=== PATIENT | female | born 1965 | race Caucasian/White ===

== ENCOUNTER 2019-02-06 07:11 | Emergency (ER) | payer BC ==
[2019-02-06] MEDS ORDERED: ONDANSETRON 4 MG/2 ML VIAL ONE ×2 (08:06→12:28)
[2019-02-06] MEDS ORDERED: HYDROMORPHONE HCL 1 MG/ML INJ ONE ×2 (08:06→09:06)
[2019-02-06] MEDS ORDERED: NA CHLORIDE 0.9% 1,000 ML ONE ×2 (08:06→08:51)
[2019-02-06 08:23] LABS: Absolute Lymphocytes (CBC) 0.8 K/uL (0.7-4.9); Absolute Monocytes 0.3 K/uL (0.1-1.3); Basophils % 0.3 % (0-1.3); Eosinophils % 0.1 % (0-4.4); Hematocrit 38.9 % (36.0-45.0); Lymphocytes % 15.4 % (15.3-44.8); MPV 9.4 fL (7.6-11.3); Monocytes % 5.7 % (3.3-12.3)
[2019-02-06 08:28] LABS: Protime INR 1.07
--- NOTE | 2019-02-06 08:49 | RAD REPORT ---
EXAM DESCRIPTION: RAD - Chest Single View - 02/06/2019 8:37 am CLINICAL HISTORY: ABDOMINAL DISTENTION Chest pain. COMPARISON: No comparisons FINDINGS: Portable technique limits examination quality. The lungs are grossly clear. The heart is normal in size. No displaced fractures. IMPRESSION: No acute intrathoracic process suspected.
[2019-02-06] MEDS ORDERED: PANTOPRAZOLE 40 MG INJ ONE (08:51)
[2019-02-06 09:00] LABS: ALT/SGPT 39 U/L (12-78); AST/SGOT 33 U/L (15-37); Albumin 3.6 g/dL (3.4-5.0); Alkaline Phosphatase 148 U/L (45-117); BUN Blood Urea Nitrogen 11 mg/dL (7-18); Bicarbonate 23 mmol/L (21-32); Bilirubin Direct 0.2 mg/dL (0-0.2); Bilirubin Total 0.5 mg/dL (0.2-1.0); Glucose Level 134 mg/dL (74-106); Lipase 131 U/L (73-393); Magnesium 1.7 mg/dL (1.8-2.4); NT PRO-BNP 326 pg/mL (<125); Potassium 3.3 mmol/L (3.5-5.1); Protein, Total 7.1 g/dL (6.4-8.2); Sodium Level 136 mmol/L (136-145); Troponin (Emerg Dept Use Only) < 0.02 ng/mL (0.0-0.045)
[2019-02-06] MEDS ORDERED: NS KCL 20MEQ 1,000 ML IV ONE (09:53)
[2019-02-06] MEDS ORDERED: MAGNESIUM SULFATE 1 gm IVPB 0 GM/0 ML BAG IV ONE (09:53)
[2019-02-06] MEDS ORDERED: Magnesium Sulfate 2gm IVPB 2 G/50 ML BAG IV ONE (10:09)
[2019-02-06] MEDS ORDERED: HYDROMORPHONE HCL 0.5 MG/0.5 ML INJ ONE (10:18)
--- NOTE | 2019-02-06 11:13 | EDPHYS ---
Physician Documentation [facility] Name: Yunior Euceda Age: 53 yrs Sex: Female : 1965 Arrival Date: 02/06/2019 Time: 07:14 Bed 18 Private MD: out of town, doctor ED Physician Osvaldo Beck HPI: 02/06 07:52 This 53 yrs old Female presents to ER via Ambulatory with complaints of alvin Abdominal Cramping, Back Pain. 07:52 The patient presents with abdominal pain. Onset: The symptoms/episode began/occurred 2 alvin day(s) ago. The patient presents to the emergency department with nausea, vomiting, abdominal pain. Onset: The symptoms/episode began/occurred 2 day(s) ago. Possible causes: unknown. The symptoms are aggravated by movement, pressure, food , The symptoms are alleviated by nothing. remaining still. Associated signs and symptoms: The patient has no apparent associated signs or symptoms. Historical: - Allergies: 07:17 No Known Allergies; sv - PMHx: 07:17 None; sv - PSHx: 07:17 Cholecystectomy; gastric sleeve; Appendectomy; sv - Immunization history:: Adult Immunizations unknown. - Social history:: Smoking status: unknown. - Family history:: not pertinent. - Ebola Screening: : No symptoms or risks identified at this time. ROS: 07:52 Constitutional: Negative for fever, chills, and weight loss, Eyes: Negative for injury, alvin pain, redness, and discharge, ENT: Negative for injury, pain, and discharge, Neck: Negative for injury, pain, and swelling, Cardiovascular: Negative for chest pain, palpitations, and edema, Respiratory: Negative for shortness of breath, cough, wheezing, and pleuritic chest pain, Back: Negative for injury and pain, : Negative for injury, bleeding, discharge, and swelling, MS/Extremity: Negative for injury and deformity, Skin: Negative for injury, rash, and discoloration, Neuro: Negative for headache, weakness, numbness, tingling, and seizure, Psych: Negative for depression, anxiety, suicide ideation, homicidal ideation, and hallucinations, Allergy/Immunology: Negative for hives, rash, and allergies, Endocrine: Negative for neck swelling, polydipsia, polyuria, polyphagia, and marked weight changes, Hematologic/Lymphatic: Negative for swollen nodes, abnormal bleeding, and unusual bruising. 07:52 Abdomen/GI: Positive for abdominal pain, of the epigastric area, right upper quadrant and left upper quadrant. Exam: 07:52 Constitutional: This is a well developed, well nourished patient who is awake, alert, alvin and in no acute distress. Head/Face: Normocephalic, atraumatic. Eyes: Pupils equal round and reactive to light, extra-ocular motions intact. Lids and lashes normal. Conjunctiva and sclera are non-icteric and not injected. Cornea within normal limits. Periorbital areas with no swelling, redness, or edema. ENT: Nares patent. No nasal discharge, no septal abnormalities noted. Tympanic membranes are normal and external auditory canals are clear. Oropharynx with no redness, swelling, or masses, exudates, or evidence of obstruction, uvula midline. Mucous membranes moist. Neck: Trachea midline, no thyromegaly or masses palpated, and no cervical lymphadenopathy. Supple, full range of motion without nuchal rigidity, or vertebral point tenderness. No Meningismus. Chest/axilla: Normal chest wall appearance and motion. Nontender with no deformity. No lesions are appreciated. Cardiovascular: Regular rate and rhythm with a normal S1 and S2. No gallops, murmurs, or rubs. Normal PMI, no JVD. No pulse deficits. Respiratory: Lungs have equal breath sounds bilaterally, clear to auscultation and percussion. No rales, rhonchi or wheezes noted. No increased work of breathing, no retractions or nasal flaring. Back: No spinal tenderness. No costovertebral tenderness. Full range of motion. Skin: Warm, dry with normal turgor. Normal color with no rashes, no lesions, and no evidence of cellulitis. MS/ Extremity: Pulses equal, no cyanosis. Neurovascular intact. Full, normal range of motion. Neuro: Awake and alert, GCS 15, oriented to person, place, time, and situation. Cranial nerves II-XII grossly intact. Motor strength 5/5 in all extremities. Sensory grossly intact. Cerebellar exam normal. Normal gait. Psych: Awake, alert, with orientation to person, place and time. Behavior, mood, and affect are within normal limits. 07:52 Abdomen/GI: Inspection: abdomen appears normal, Bowel sounds: active, Palpation: moderate abdominal tenderness, in the epigastric area, right upper quadrant and left upper quadrant, Liver: no appreciated palpable abnormalities, Hernia: not appreciated. Vital Signs: 07:17 BP 136 / 101; Pulse 56; Resp 24; Temp 98.1; Pulse Ox 100% ; Weight 55.79 kg; Height 5 sv ft. 2 in. (157.48 cm); Pain 8/10; 08:15 BP 141 / 72; Pulse 81; Resp 23 S; Pulse Ox 100% on R/A; jl7 11:03 BP 170 / 77; Pulse 75; Resp 19; Pulse Ox 100% ; jl7 13:30 BP 160 / 75; Pulse 61; Resp 18 S; Pulse Ox 100% on R/A; jl7 07:17 Body Mass Index 22.50 (55.79 kg, 157.48 cm) sv MDM: 07:23 Patient medically screened. [facility] 07:55 Data reviewed: vital signs, nurses notes, lab test result(s), EKG, radiologic studies, [facility] CT scan, plain films. 02/06 07:49 Order name: Basic Metabolic Panel; Complete Time: 09:14 [facility] 02/06 07:49 Order name: CBC with Diff; Complete Time: 08:54 [facility] 02/06 07:49 Order name: LFT's; Complete Time: 09:14 [facility] 02/06 07:49 Order name: Magnesium; Complete Time: 09:14 [facility] 02/06 07:49 Order name: NT PRO-BNP; Complete Time: 09:14 [facility] 02/06 07:49 Order name: PT-INR; Complete Time: 08:54 [facility] 02/06 07:49 Order name: Troponin (emerg Dept Use Only); Complete Time: 09:14 [facility] 02/06 07:49 Order name: XRAY Chest (1 view); Complete Time: 08:54 [facility] 02/06 07:49 Order name: Lipase; Complete Time: 09:14 [facility] 02/06 07:49 Order name: Procalcitonin; Complete Time: 08:54 [facility] 02/06 07:56 Order name: Lactate; Complete Time: 09:14 [facility] 02/06 07:49 Order name: EKG; Complete Time: 07:50 [facility] 02/06 07:49 Order name: Cardiac monitoring; Complete Time: 08:18 [facility] 02/06 07:49 Order name: EKG - Nurse/Tech; Complete Time: 09:03 [facility] 02/06 07:49 Order name: IV Saline Lock; Complete Time: 08:18 [facility] 02/06 07:49 Order name: Labs collected and sent; Complete Time: 08:18 [facility] 02/06 07:49 Order name: O2 Per Protocol; Complete Time: 08:18 [facility] 02/06 07:49 Order name: O2 Sat Monitoring; Complete Time: 08:18 [facility] Administered Medications: 08:10 Drug: NS 0.9% 1000 ml Route: IV; Rate: 1 bolus; Site: right antecubital; jl7 10:14 Follow up: IV Status: Completed infusion; IV Intake: 1000ml jl7 08:11 Drug: Zofran 4 mg Route: IVP; Site: right antecubital; jl7 08:45 Follow up: Response: No adverse reaction; Nausea is decreased jl7 08:13 Drug: Dilaudid 1 mg Route: IVP; Site: right antecubital; jl7 08:45 Follow up: Response: No adverse reaction; Pain is unchanged, physician notified jl7 08:58 Drug: NS 0.9% 1000 ml Route: IV; Rate: 125 ml/hr; Site: right antecubital; jl7 08:58 Drug: Dilaudid 1 mg Route: IVP; Site: right antecubital; jl7 09:45 Follow up: Response: No adverse reaction; Pain is unchanged, physician notified jl7 09:00 Drug: ProTONIX 40 mg Route: IVP; Site: right antecubital; jl7 10:13 Follow up: Response: No adverse reaction jl7 10:00 Drug: NS 0.9% with KCl 20 mEq/L 1000 ml Route: IV; Rate: 125 ml/hr; Site: right jl7 antecubital; 10:02 Drug: Magnesium Sulfate 2 grams Route: IVPB; Infused Over: 2 hrs; Site: right jl7 antecubital; 10:08 Drug: Dilaudid 0.5 mg Route: IVP; Site: right antecubital; jl7 12:29 Drug: Zofran 4 mg Route: IVP; Site: right antecubital; jl7 12:30 Drug: morphine 4 mg Route: IVP; Site: right antecubital; jl7 Disposition: 02/06/19 12:20 Transfer ordered to Other Acute Care Facility. Diagnosis are Abdominal tenderness - intractable, hx of gastric sleeve, gastric bypass, Vomiting, Hypomagnesemia, Hypokalemia. - Reason for transfer: Higher level of care. - Accepting physician is may lincoln, dr mo consulting. - Condition is Stable. - Problem is new. - Symptoms have improved. Signatures: Dispatcher [employer] EDTX Sera Luciano, Osvaldo Doe RN, MD MD cha Leal, Jahala, RN RN jl7 Corrections: (The following items were deleted from the chart) 08:01 07:50 Abdomen Pelvis W Con+CT.RAD.BRZ ordered. [facility] EDTX 11:12 11:12 Hospitalization Ordered by [facility] for Inpatient Admission. Preliminary [facility] diagnosis is Abdominal tenderness - intractable; Congenital hiatus hernia; Vomiting - hx of gastric sleeve, bypass. Bed requested for Telemetry/MedSurg (Inpatient). Status is Inpatient Admission. Condition is Stable. Problem is new. Symptoms have improved. UTI on Admission? No. [facility] 11:18 11:12 02/06/2019 11:12 Hospitalization Ordered by [facility] for Inpatient alvin Admission. Preliminary diagnosis is Abdominal tenderness - intractable; Congenital hiatus hernia; Vomiting - hx of gastric sleeve, bypass. Bed requested for Telemetry/MedSurg (observation). Status is Inpatient Admission. Condition is Stable. Problem is new. Symptoms have improved. UTI on Admission? No. alvin 12:18 11:18 02/06/2019 11:12 Hospitalization Ordered by [facility] for Inpatient alvin Admission. Preliminary diagnosis is Abdominal tenderness - intractable; Congenital hiatus hernia; Vomiting - hx of gastric sleeve, bypass; Hypokalemia; Hypomagnesemia. Bed requested for Telemetry/MedSurg (observation). Status is Inpatient Admission. Condition is Stable. Problem is new. Symptoms have improved. UTI on Admission? No. alvin 14:45 12:20 02/06/2019 12:20 Transfer ordered to Other Acute Care Facility. Diagnosis is jl7 Abdominal tenderness - intractable, hx of gastric sleeve, gastric bypass; Vomiting; Hypomagnesemia; Hypokalemia. Reason for transfer: Higher level of care. Accepting physician is may lincoln, dr mo consulting. Condition is Stable. Problem is new. Symptoms have improved. alvin
--- NOTE | 2019-02-06 11:13 | ER ---
Nurse's Notes [facility] Name: Yunior Euceda Age: 53 yrs Sex: Female : 1965 Arrival Date: 02/06/2019 Time: 07:14 Bed 18 Private MD: out of town, doctor Diagnosis: Abdominal tenderness-intractable, hx of gastric sleeve, gastric bypass;Vomiting;Hypomagnesemia;Hypokalemia Presentation: 02/06 07:14 Presenting complaint: Patient states: abd pain with radiation to the back x 1 day, c/o sv dry heaves. Transition of care: patient was not received from another setting of care. Onset of symptoms was February 05, 2019. Care prior to arrival: None. 07:14 Method Of Arrival: Ambulatory sv 07:14 Acuity: KUNAL 3 sv 07:30 Risk Assessment: Do you want to hurt yourself or someone else? Patient reports no jl7 desire to harm self or others. Initial Sepsis Screen: Does the patient meet any 2 criteria? No. Patient's initial sepsis screen is negative. Does the patient have a suspected source of infection? No. Patient's initial sepsis screen is negative. Historical: - Allergies: 07:17 No Known Allergies; sv - PMHx: 07:17 None; sv - PSHx: 07:17 Cholecystectomy; gastric sleeve; Appendectomy; sv - Immunization history:: Adult Immunizations unknown. - Social history:: Smoking status: unknown. - Family history:: not pertinent. - Ebola Screening: : No symptoms or risks identified at this time. Screenin:30 Abuse screen: Denies threats or abuse. Denies injuries from another. Nutritional jl7 screening: No deficits noted. Tuberculosis screening: No symptoms or risk factors identified. 08:45 Fall Risk IV access (20 points). jl7 Assessment: 07:30 General: Appears uncomfortable, Behavior is cooperative, anxious. Pain: Complains of jl7 pain in right upper quadrant and left upper quadrant Pain radiates to mid back area Pain currently is 8 out of 10 on a pain scale. at worst was 10 out of 10 on a pain scale. Quality of pain is described as aching, dull, sharp, Pain began 2-3 days ago. Is intermittent, Noted to be grimacing, guarding, moaning, Also complains of nausea. Neuro: Level of Consciousness is awake, alert, obeys commands, Oriented to person, place, time, situation. Cardiovascular: Patient's skin is warm and dry. Respiratory: Airway is patent Respiratory effort is even, unlabored, Respiratory pattern is regular, symmetrical. GI: Bowel sounds present X 4 quads. Abd is soft X 4 quads Abdomen is tender to palpation in right upper quadrant and left upper quadrant Reports nausea, Patient currently denies constipation, diarrhea, vomiting. : No signs and/or symptoms were reported regarding the genitourinary system. EENT: No signs and/or symptoms were reported regarding the EENT system. Derm: Skin is pink, warm \\T\\ dry. Musculoskeletal: No signs and/or symptoms reported regarding the musculoskeletal system. 07:30 Reassessment: Pt states "I had the gastric sleeve converted to a bypass in 2017 and jl7 every since then I have these flare-ups. I don't have a diagnosis yet, I'm supposed to see Dr. Johnson. I've went to [place] ER last night and they gave me a shot of Dilaudid, that helped for a while but this pain is unbearable. They did a CT with dye and blood work and it was all negative.". 08:45 Reassessment: Pt unable to provide urine sample at this time, will try again once fluid jl7 bolus is done. Pt reports continued severe abdominal pain, ERD notified, see MAR for orders. 09:45 Reassessment: No changes from previously documented assessment. Patient and/or family jl7 updated on plan of care and expected duration. Pain level reassessed. Patient is alert, oriented x 3, equal unlabored respirations, skin warm/dry/pink. 10:10 Reassessment: Pt c/o continued severe abdominal pain, requesting additional Dilaudid, jl7 ERD notified, see MAR for orders. Pt's lips appear dry and cracked, pt used personal chap stick at this time. 11:02 Reassessment: Dr. Beck at bedside discussing plan of care. jl7 11:32 Reassessment: Dr. Childers at bedside discussing plan of care. jl7 12:25 Reassessment: Pt reports the none of the medication has helped with the pain, pt states jl7 "I have to have something for the pain." ERD notified, see MAR for orders. 13:00 Reassessment: Pt sitting in bed with eyes closed, no apparent distress, VSS. Pt reports jl7 "The medication is not helping at all, I need something for the pain." Dr. Beck aware, no new orders received at this time. 14:00 Reassessment: No changes from previously documented assessment. Patient and/or family jl7 updated on plan of care and expected duration. Pain level reassessed. Patient is alert, oriented x 3, equal unlabored respirations, skin warm/dry/pink. Vital Signs: 07:17 BP 136 / 101; Pulse 56; Resp 24; Temp 98.1; Pulse Ox 100% ; Weight 55.79 kg; Height 5 sv ft. 2 in. (157.48 cm); Pain 8/10; 08:15 BP 141 / 72; Pulse 81; Resp 23 S; Pulse Ox 100% on R/A; jl7 11:03 BP 170 / 77; Pulse 75; Resp 19; Pulse Ox 100% ; jl7 13:30 BP 160 / 75; Pulse 61; Resp 18 S; Pulse Ox 100% on R/A; jl7 07:17 Body Mass Index 22.50 (55.79 kg, 157.48 cm) sv ED Course: 07:14 Patient arrived in ED. mr 07:14 out of town, doctor is Private Physician. mr 07:15 Triage completed. sv 07:18 Arm band placed on. sv 07:23 Osvaldo Beck MD is Attending Physician. alvin 07:30 Patient has correct armband on for positive identification. Placed in gown. Bed in low jl7 position. Call light in reach. Side rails up X 1. Pulse ox on. NIBP on. 07:35 Macario Hernandez, RN is Primary Nurse. jl7 08:37 EKG done, by cryptographic technician. reviewed by Osvaldo Beck MD. at1 08:38 XRAY Chest (1 view) In Process Unspecified. EDMS 11:07 Sabino Childers DO is Hospitalizing Provider. alvin Administered Medications: 08:10 Drug: NS 0.9% 1000 ml Route: IV; Rate: 1 bolus; Site: right antecubital; jl7 10:14 Follow up: IV Status: Completed infusion; IV Intake: 1000ml jl7 08:11 Drug: Zofran 4 mg Route: IVP; Site: right antecubital; jl7 08:45 Follow up: Response: No adverse reaction; Nausea is decreased jl7 08:13 Drug: Dilaudid 1 mg Route: IVP; Site: right antecubital; jl7 08:45 Follow up: Response: No adverse reaction; Pain is unchanged, physician notified jl7 08:58 Drug: NS 0.9% 1000 ml Route: IV; Rate: 125 ml/hr; Site: right antecubital; jl7 08:58 Drug: Dilaudid 1 mg Route: IVP; Site: right antecubital; jl7 09:45 Follow up: Response: No adverse reaction; Pain is unchanged, physician notified jl7 09:00 Drug: ProTONIX 40 mg Route: IVP; Site: right antecubital; jl7 10:13 Follow up: Response: No adverse reaction 7 10:00 Drug: NS 0.9% with KCl 20 mEq/L 1000 ml Route: IV; Rate: 125 ml/hr; Site: right 7 antecubital; 10:02 Drug: Magnesium Sulfate 2 grams Route: IVPB; Infused Over: 2 hrs; Site: right jl7 antecubital; 10:08 Drug: Dilaudid 0.5 mg Route: IVP; Site: right antecubital; jl7 12:29 Drug: Zofran 4 mg Route: IVP; Site: right antecubital; jl7 12:30 Drug: morphine 4 mg Route: IVP; Site: right antecubital; jl7 Intake: 10:14 IV: 1000ml; Total: 1000ml. jl7 Outcome: 11:12 Decision to Hospitalize by Provider. alvin 12:20 ER care complete, transfer ordered by . alvin 14:45 Patient left the ED. jl7 Signatures: Dispatcher [employer] Sera Mendez RN RN sv Anderson, Corey, MD MD cha Rivera, Ai mr Jacquelin Shaw, shape carver EKG Tat1 Macario Hernandez RN RN jl7 Corrections: (The following items were deleted from the chart) 07:24 07:17 BP 136 / 101; Pulse 88bpm; Resp 24bpm; Pulse Ox 100%; Temp 98.1F; 55.79 kg; sv Height 5 ft. 2 in.; BMI: 22.5; Pain 8/10; sv
[2019-02-06] MEDS ORDERED: MORPHINE 4 MG/ML SYR ONE (12:28)
--- NOTE | 2019-02-06 15:51 | EKG ---
Test Date: 2019-02-06 Test Time: 08:34:31 [employer]ems Integration Engineer: NICHOLE MEASUREMENT RESULTS: Intervals: Rate: 53 CT: 132 QRSD: 98 QT: 504 QTc: 472 [place]: P: 68 CT: 132 QRS: 67 T: 39 INTERPRETIVE STATEMENTS: Sinus bradycardia Otherwise normal ECG No previous ECG available for comparison Electronically Signed On 02-06-19 15:50:09 CDT by Conrado Cruz
== END 2019-02-06 14:45 ==
LOC: ER 07:11
DX: R10.819 Abdominal tenderness, unspecified site (principal); R11.10 Vomiting, unspecified; E83.42 Hypomagnesemia; E87.6 Hypokalemia; Z98.890 Other specified postprocedural states
CPT/HCPCS: 36415; 71045; 80048; 80076; 83605; 83690; 83735; 83880; 84145; 84484; 85025; 85610; 93005; 96361; 96374; 96375; 99284; C9113; J1170; J2405; J3475; J7030

== ENCOUNTER 2019-04-12 20:31 | Inpatient (IN) | payer BC ==
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
--- OUTSIDE RECORDS SUMMARY | 2019-04-12 20:34 | XMS REPORT | Continuity of Care Document ---
:1965 Author Organization Interface Problems Problem Status Onset Classification Date Comments Source Date Reported Abdominal pain Resolved Problem 03/21/[address] [facility] Backache Resolved Problem 03/21/[address] [facility] Diverticulosis Resolved Problem 03/21/[address] [facility] IBS Resolved Problem 03/21/[address] [facility] Colitis Resolved Problem 03/21/[address] [facility] Dehydration Resolved Problem 03/21/[address] [facility] Gastroenteritis Resolved Problem 03/21/[address] [facility] Hiatal hernia Resolved Problem 03/21/[address] [facility] H/O exploratory Active Problem 03/21/2019 [place] laparotomy [facility] Medications Medication Details Route Status Patient Ordering Order Source Instructions Provider Date Dicyclomine Three Times ORAL Active [facility] [place] [facility] A Day for [facility] (Dicyclomine Irritable Medical Hcl 20 Mg Bowel Center (Bentyl) *) 20 Symptoms Mg Tab Famotidine Twice A Day ORAL Active [facility] [place] (Pepcid *) 20 for - 019 [facility] Mg Tab Medical Center Tramadol/Apap Three Times ORAL Active [facility] [place] * (Ultracet Daily As 019 [facility] 37.5/325 Mg *) Needed as Medical 1 Tab Tab needed for Center Pain Allergies, Adverse Reactions, Alerts Substance Category Reaction Severity Reaction Status Date Comments Source type Reported Immunizations Immunization Date Given Site Status Last Updated Comments Source Results Order Results Value Reference Date Interpretation Comments Source Name Range Color of Urine YELLOW a by Auto 2018 [facility] Urine CLEAR CLEAR appearance [facility] Urine glucose NEGATIVE NEGATIVE rda measurement 2018 [facility] (mass/volume) [facility] Urine bilirubin NEGATIVE NEGATIVE rda measurement 2018 [facility] Urine ketones null NEGATIVE rda measurement 2018 [facility] Specific 1.025 1.003 - gravity of 1.030 2018 [facility] Urine by Medical Automated test Center strip Urine NEGATIVE NEGATIVE hemoglobin 2019 [facility] detection by Medical test strip Center Urine pH 6.000 5 - 9 a measurement 2018 [facility] Urine protein NEGATIVE NEGATIVE measurement 2018 [facility] Urine 0.2 0.2 - 1.0 urobilinogen 2018 [facility] Nitrite ur NEGATIVE NEGATIVE dipstick 2018 [facility] Urine leukocyte NEGATIVE NEGATIVE esterase 2018 [facility] RBC ur QL null 0 - 5 2018 [facility] Urine null 0 - 5 examination for 2019 [facility] white blood Medical cells (WBC) Center Epithelial null 0 - 5 cells detection 2019 [facility] in urine Medical sediment by Center light microscopy Microscopic TRACE None Detect analysis of 2019 [facility] urine for Medical bacteria Center Urine Culture NO Reflexed 2018 [facility] White blood 5.3 4.0 - 11.5 cell count 2019 [facility] RBC count 4.43 3.80 - 5.20 2018 [facility] Blood 12.9 10.5 - 15.7 hemoglobin 2019 [facility] measurement Medical (mass/volume) Center Hematocrit 39.2 34.0 - 50.0 2018 [facility] MCV (mean 88.5 78 - 98 corpuscular 2019 [facility] volume) Medical determination Center Mean 29.1 26.2 - 33.4 corpuscular 2018 [facility] hemoglobin Medical ([facility]) Center determination Mean 32.9 31.5 - 36.2 corpuscular 2018 [facility] hemoglobin Medical concentration Center ([facility]) determination RDW 11.3 11.5 - 15.5 2018 [facility] Platelets bld 224 137 - 338 2018 [facility] Blood platelet 8.3 8.4 - 11.8 mean volume 2018 [facility] Blood band 67.6 44.4 - 80.1 neutrophils/100 2018 [facility] leukocytes [facility] Body fluid 26.2 10.0 - 50.0 lymphocytes/100 2018 [facility] leukocytes [facility] Yates % 5.3 3.6 - 12.04 2018 [facility] Eosinophil % 0.1 0.0 - 5.41 2018 [facility] Basophil % 0.8 0.0 - 0.79 2018 [facility] Glucose 138 74 - 106 measurement 2018 [facility] Serum or plasma 14 6 - 20 urea nitrogen 2018 [facility] Medical (mass/volume) Center Osmolality ser 269 280 - 300 2018 [facility] Creatinine 0.6 0.50 - 0.90 blood 2019 [facility] Estimated null glomerular 2018 [facility] filtration rate Medical (GFR) Center determination Serum or plasma 23.3 12 - 20 urea 2019 [facility] nitrogen/creati Medical nine ratio Center Sodium level 133 135 - 145 2018 [facility] Body fluid 3.5 3.5 - 5.2 potassium 2018 [facility] Chloride 94 98 - 108 measurement 2018 [facility] CO2 21 21 - 32 2018 [facility] Anion gap 21.5 12 - 20 measurement 2018 [facility] Calcium level 9.5 8.6 - 10.0 2018 [facility] Total protein 7.2 6.6 - 8.7 2018 [facility] Albumin 4.2 3.5 - 5.2 2018 [facility] Globulin ser 3.0 rd2018 [facility] Albumin-globuli 1.4 >1.0 n ratio ser 2019 [facility] Bilirubin total 0.4 0.0 - 1.2 2019 [facility] AST 23 15 - 32 rd2018 [facility] ALT (SGPT) 23 0 - 33 rda ser/plas 2019 [facility] Amylase serum 90 28 - 100 2018 [facility] Lipase 29 13 - 60 rd2018 [facility] ALP ser/plas 146 35 - 105 2018 [facility] Color of Urine YELLOW by Auto 2018 [facility] Urine CLEAR CLEAR appearance 2019 [facility] Urine glucose NEGATIVE NEGATIVE measurement 2019 [facility] (mass/volume) Medical [place] Urine bilirubin NEGATIVE NEGATIVE measurement 2018 [facility] Urine ketones SMALL, 15 NEGATIVE measurement MG/DL 2018 [facility] Specific 1.010 1.003 - gravity of 1.030 2018 [facility] Urine by Medical Automated test Center strip Urine NEGATIVE NEGATIVE hemoglobin 2019 [facility] detection by Medical test strip Center Urine pH 8.000 5 - 9 measurement 2018 [facility] Urine protein NEGATIVE NEGATIVE measurement 2018 [facility] Urine 0.2 0.2 - 1.0 urobilinogen 2018 [facility] Nitrite ur NEGATIVE NEGATIVE dipstick 2018 [facility] Urine leukocyte NEGATIVE NEGATIVE esterase 2018 [facility] RBC ur QL NONE SEEN 0 - 5 2019 [facility] Urine null 0 - 5 examination for 2019 [facility] white blood Medical cells (WBC) Center Epithelial null 0 - 5 cells detection 2019 [facility] in urine Medical sediment by Center light microscopy Microscopic None None Detect analysis of Detected 2018 [facility] urine for Medical bacteria Center Urine Culture NO Reflexed 2018 [facility] White blood 6.0 4.0 - 11.5 cell count 2018 [facility] RBC count 4.55 3.80 - 5.20 2018 [facility] Blood 13.4 10.5 - 15.7 hemoglobin 2018 [facility] measurement Medical (mass/volume) Center Hematocrit 41.3 34.0 - 50.0 2018 [facility] MCV (mean 90.7 78 - 98 corpuscular 2019 [facility] volume) Medical determination Center Mean 29.5 26.2 - 33.4 corpuscular 2018 [facility] hemoglobin [facility] ([facility]) Center determination Mean 32.5 31.5 - 36.2 corpuscular 2018 [facility] hemoglobin Medical concentration Center (MCHC) determination RDW 11.7 11.5 - 15.5 2018 [facility] Platelets bld 206 137 - 338 2018 [facility] Blood platelet 8.5 8.4 - 11.8 mean volume 2018 [facility] Blood band 79.6 44.4 - 80.1 neutrophils/100 2018 [facility] Body fluid 12.8 10.0 - 50.0 lymphocytes/100 2018 [facility] Yates % 6.0 3.6 - 12.04 2018 [facility] Eosinophil % 0.2 0.0 - 5.41 2018 [facility] Basophil % 1.4 0.0 - 0.79 2018 [facility] Serum or plasma 175 74 - 106 glucose 2018 [facility] Medical (mass/volume) [place] Serum or plasma 13 6 - 20 urea nitrogen 2018 [facility] Medical (mass/volume) [place] Osmolality ser 278 280 - 300 2018 [facility] Creatinine 0.5 0.50 - 0.90 a measurement 2019 [facility] Estimated null glomerular 2018 [facility] filtration rate Medical (GFR) Center determination Serum or plasma 26.0 12 - 20 urea 2018 [facility] nitrogen/creati Medical nine ratio Center Sodium level 137 135 - 145 2018 [facility] Potassium 3.5 3.5 - 5.2 2018 [facility] Chloride 97 98 - 108 measurement 2018 [facility] CO2 25 21 - 32 2018 [facility] Anion gap 18.5 12 - 20 measurement 2018 [facility] Calcium level 9.4 8.6 - 10.0 2018 [facility] Total protein 7.4 6.6 - 8.7 2018 [facility] Albumin 4.1 3.5 - 5.2 2018 [facility] Globulin ser 3.3 2018 [facility] Albumin-globuli 1.2 >1.0 n ratio ser 2018 [facility] Bilirubin total 0.3 0.0 - 1.2 2018 [facility] AST 24 15 - 32 2018 [facility] ALT (SGPT) 24 0 - 33 ser/plas 2018 [facility] Amylase serum 64 28 - 100 2018 [facility] Lipase 28 13 - 60 2018 [facility] ALP ser/plas 158 35 - 105 2018 [facility] Vital Signs Vital Sign Value Date Comments Source Encounters Location Location Encounter Encounter Reason Attending ADM DC Status Source Details Type Number For Provider Date Date Visit Departed [id number] GIACOMO 02/05 02/05 [place] [facility] JACLYN DAILEY /2018 [facility] Center Departed [id number] GIACOMO 02/05 02/06 [place] [facility] 65 JACLYN DAILEY /2018 [facility] Discharged [id number] CARRI 03/19 03/20 [place] Recurring 95 MARY DAILEY /2018 [facility] Procedures Procedure Code Date Perfomer Comments Source Computed [id number] 02/05/2019 JACLYN [place] tomography of [facility] abdomen and pelvis [facility] with contrast CT ABD & PELV [id number] 02/05/2019 [place] W/CONTRAST [facility] EMERGENCY DEPT [id number] 02/05/2019 [place] VISIT [facility] THER/PROPH/DIAG [id number] 02/05/2019 [place] INJ IV PUSH [facility] [place] 244[address] 02/05/2019 [place] DRUG [place] [facility] [place] [id number] 02/05/2019 [place] INFUSION ADD-ON [facility] ASSAY OF AMYLASE 61200 02/05/[address] [facility] COMPLETE CBC [id number] 02/05/2019 [place] W/AUTO DIFF WBC [facility] ASSAY OF LIPASE [id number] 02/05/[address] [facility] URINALYSIS AUTO [id number] 02/05/2019 [place] W/SCOPE [facility] ROUTINE 10779 02/05/2019 [place] VENIPUNCTURE [facility] COMPREHEN [id number] 02/05/2019 [place] METABOLIC PANEL [facility] EMERGENCY DEPT [id number] 02/05/2019 [place] VISIT [facility] [place]/PRO/DX INJ SAME [id number] 02/05/2019 [place] DRUG LAND LEASE INFORMATION CLERK [facility]
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
--- OUTSIDE RECORDS SUMMARY | 2019-04-12 20:35 | XMS REPORT | Continuity of Care Document ---
:1965 Author Organization [facility] Address [address] [place] [address] Phone Unavailable Care Team Providers Name Role Phone URIAH PALMA Primary Care Physician Insurance Providers Guarantor Sabrina Lewis Address [address] [place] [address] Payer [facility] Policy Number [id number] Subscriber's Name Caleb Lewis Relationship Spouse Group Number [id number] Group Name NA Advance Directives Directive Response Recorded Date/Time Patient/Family Given Education Material R/T Directives? Yes 03/19/19 8:48am Problems Surgical Problem Onset Date Status H/O exploratory laparotomy Unknown Past Problems Medical Problem Onset Date Status [...] discharge instruction information available. Plan of Care Prescriptions See Medication Section Functional Status No functional status information available. Allergies, Adverse Reactions, Alerts No known allergies. Immunizations No immunization information available. Vital Signs Acute Vital Signs Vital Response Date/Time Blood Pressure 147/73 mm Hg 02/06/2019 12:30am Pulse Pulse Rate (adult) 78 beats per minute (60 - 100) 02/06/2019 12:30am Respiratory Rate 20 breaths per minute (10 - 24) 02/06/2019 12:30am Temperature Source Oral 02/06/2019 12:30am Results Laboratory Results Test Name Result Units [...] 10:03pm Urine Specific 1.025 1.003-1.030 02/05/2019 02/05/2019 [place] 9:40pm 10:03pm Urine Blood NEGATIVE NEGATIVE 02/05/2019 [...] 8:43pm 9:04pm Procedures Procedure Status Date Provider(s) CT ABD & PELV W/CONTRAST Completed 02/05/19 EMERGENCY DEPT VISIT Completed 02/05/19 THER/PROPH/DIAG INJ IV PUSH Completed 02/05/19 TX/PRO/DX INJ NEW DRUG ADDON Completed 02/05/19 HYDRATE IV INFUSION ADD-ON Completed 02/05/19 ASSAY OF AMYLASE Completed 02/05/19 COMPLETE CBC W/AUTO DIFF WBC Completed 02/05/19 ASSAY OF LIPASE Completed 02/05/19 URINALYSIS AUTO W/SCOPE Completed 02/05/19 ROUTINE VENIPUNCTURE Completed 02/05/19 COMPREHEN METABOLIC PANEL Completed 02/05/19 Completed 02/05/19 EMERGENCY DEPT VISIT Completed 02/05/19 THER/PROPH/DIAG INJ IV PUSH Completed 02/05/19 TX/PRO/DX INJ NEW DRUG ADDON Completed 02/05/19 HYDRATE IV INFUSION ADD-ON Completed 02/05/19 ASSAY OF AMYLASE Completed 02/05/19 COMPLETE CBC W/AUTO DIFF WBC Completed 02/05/19 ASSAY OF LIPASE Completed 02/05/19 URINALYSIS AUTO W/SCOPE Completed 02/05/19 ROUTINE VENIPUNCTURE Completed 02/05/19 COMPREHEN METABOLIC PANEL Completed 02/05/19 TX/PRO/DX INJ SAME DRUG PROMOTION PRODUCER Completed 02/05/19 Completed 02/05/19 Computed tomography of abdomen and pelvis with Completed 02/05/19 GIACOMO ANAYA MD contrast Encounters Encounter Location Arrival/Admit Date Discharge/Depart Date Attending Provider Discharged [place] 03/19/19 8:50am 03/20/19 11:59pm [facility] Departed [place] 02/05/19 8:05pm 02/06/19 12:31am GIACOMO ANAYA [facility] Departed [place] 02/05/19 5:41am 02/05/19 9:32am GIACOMO ANAYA [facility]
[2019-04-12] MEDS ORDERED: SODIUM CHLORIDE 0.9% 10ML INJ IV PRN (20:42)
[2019-04-12] MEDS ORDERED: ONDANSETRON 4 MG/2 ML VIAL IV PRN (20:42)
[2019-04-12] MEDS ORDERED: MEPERIDINE HCL 25 MG/0.5 ML IV PRN (20:46)
[2019-04-12] MEDS ORDERED: VANCOMYCIN 500 MG in NA CHLORIDE 0.9% 100 ML IVPB SCH (21:00)
[2019-04-12] MEDS: D5 0.9 NS 1,000 ML IV SCH (21:34)
[2019-04-12] MEDS: ACETAMINOPHEN 500 MG TAB PO PRN (21:34)
[2019-04-12] MEDS: GABAPENTIN 300 MG CAP PO SCH (21:34)
[2019-04-12 21:50] LABS: Absolute Lymphocytes (CBC) 1.5 K/uL (0.7-4.9); Absolute Monocytes 0.9 K/uL (0.1-1.3); Absolute Neutrophil 15.4 K/uL (1.8-8.0); Basophils % 0.6 % (0-1.3); Eosinophils % 0.2 % (0-4.4); Hematocrit 32.5 % (36.0-45.0); Lymphocytes % 8.5 % (15.3-44.8); MPV 7.7 fL (7.6-11.3); Monocytes % 5.2 % (3.3-12.3); RBC Red Blood Cell Count 4.05 M/uL (3.86-4.86)
[2019-04-12 22:19] LABS: ALT/SGPT 23 U/L (12-78); AST/SGOT 18 U/L (15-37); Albumin 2.5 g/dL (3.4-5.0); Alkaline Phosphatase 155 U/L (45-117); BUN Blood Urea Nitrogen 10 mg/dL (7-18); Bicarbonate 32 mmol/L (21-32); Bilirubin Total 0.2 mg/dL (0.2-1.0); Glucose Level 118 mg/dL (74-106); Magnesium 1.8 mg/dL (1.8-2.4); Phosphorus 2.7 mg/dL (2.5-4.9); Prealbumin 8.5 mg/dL (20-40); Protein, Total 8.7 g/dL (6.4-8.2); Sodium Level 136 mmol/L (136-145)
[2019-04-12 22:25] LABS: Protime INR 1.41
[2019-04-12 22:29] LABS: Blood Morphology Comment NOT SEEN (NOT SEEN); Platelet Estimate INCR
[2019-04-12] MEDS ORDERED: MAGNESIUM SULFATE 1 gm IVPB 1 GM/100 ML BAG IV ONE (22:43)
[2019-04-12] MEDS ORDERED: POTASSIUM CL SA 10 MEQ TAB PO ONE (22:45)
[2019-04-12] MEDS ORDERED: Meropenem 500 MG/100 ML BAG ONE (23:24)
[2019-04-12] MEDS ORDERED: NA CHLORIDE 0.9% 0 ML IV ONE (23:30)
[2019-04-12] MEDS: Meropenem 500 MG in NA CHLORIDE 0.9% 100 ML IV SCH ×2 (23:39→23:43)
[2019-04-12] MEDS ORDERED: VANCOMYCIN 1 GM/VIAL ONE (23:55)
[2019-04-12] MEDS ORDERED: NA CHLORIDE 0.9% 250 ML ONE (23:55)
[2019-04-13] MEDS ORDERED: VANCOMYCIN/NS 1 gm 1 GM/250 ML BAG IVPB SCH
[2019-04-13 00:33] LABS: Urine Appearance CLEAR; Urine Bilirubin NEGATIVE (NEG); Urine Blood NEGATIVE (NEG); Urine Color YELLOW; Urine Glucose NEGATIVE (NEG); Urine Protein 1+ (NEG); Urine Specific Gravity 1.025 (1.005-1.030); Urine Urobilinogen 0.2 mg/dL (0.2-1.0)
[2019-04-13] MEDS ORDERED: Meropenem 500 MG VIAL IV SCH (01:00)
[2019-04-13 01:11] LABS: Urine Culture Reflex Order NOT NEEDED; Urine Mucus 3+ /HPF (NONE SEEN)
[2019-04-13 01:21] LABS: Calcium Oxalate Crystals- Ur MANY (NONE SEEN); Urine Bacteria <20 /HPF (<20); Urine RBC NONE SEEN /HPF (NONE SEEN)
[2019-04-13 06:38] LABS: BUN Blood Urea Nitrogen 8 mg/dL (7-18); Bicarbonate 30 mmol/L (21-32); Glucose Level 110 mg/dL (74-106); Magnesium 2.1 mg/dL (1.8-2.4); Potassium 3.1 mmol/L (3.5-5.1); Sodium Level 138 mmol/L (136-145)
[2019-04-13] MEDS: KCL 20 MEQ/100 mL IVPB 20 MEQ/100 ML BAG IV SCH ×2 (07:42→14:20)
[2019-04-13] MEDS: PANTOPRAZOLE 40 MG INJ IVP SCH (08:18)
[2019-04-13] MEDS: GABAPENTIN 300 MG CAP PO SCH ×3 (08:19→20:48)
--- NOTE | 2019-04-13 10:37 | RAD REPORT ---
EXAM DESCRIPTION: CT - Abdomen Pelvis W Contrast - 04/13/2019 10:00 am CLINICAL HISTORY: Abdominal pain, fever, suspected abdominal abscess COMPARISON: Outside CT imaging March 30 TECHNIQUE: Biphasic, helical CT imaging of the abdomen and pelvis was performed following 100 ml non -ionic IV contrast. Delayed imaging of the pelvis performed. Oral contrast was given. All CT scans are performed using dose optimization technique as appropriate and may include automated exposure control or mA/KV adjustment according to patient size. FINDINGS: No suspicious findings in the lung bases. The liver, spleen, and pancreas show no suspicious findings. Cholecystectomy clips are present. No bi liary tree dilatation. Symmetric renal function is seen with no hydronephrosis or suspicious renal mass. No pyelonephritis o r acute parenchymal process. No bladder abnormalities. No adrenal abnormalities. Patient has a complex surgical history. Patient is status post gastric sleeve reverted to a gastric b ypass. Patient had surgery in late January for internal hernia with partial bowel resection for ischemi a. No gastric dilatation or gastric wall thickening. No extravasation of the CT contrast. No bowel ob struction. Distal small bowel loops show wall thickening and edema. Oral contrast has reached the dis matilde rectum. There is a large 11 centimeter AP x 14 centimeter TR fluid collection in the pelvis. This has a thick ened rim or rind. Compared to the March 30 outside examination the fluid collection is not substantiall y different in size but does show a more thickened irregular rind than was seen on the prior study. T he fluid within this collection is homogeneous. There is no air or bowel content identifiable. Attenu ation is 17 Hounsfield units. This large complex fluid collection extends minimally into the left per icolic gutter. Patient has small amounts of free fluid adjacent to the liver and in the posterior mid left abdomen. These fluid collections do not have a rim or rind and are believed to be reactive intr aperitoneal fluid. In the midline upper abdomen anterior to the pancreas there is a curvilinear tubular fluid collection . This is a similar structure does seen on the March 30 examination. This is favored to be a bowel stru cture and not an abnormal postoperative fluid collection. No free air or pneumatosis. No bulky lymphadenopathy or omental thickening. No suspicious bony findings. IMPRESSION: Large 11 x 14 centimeter fluid collection in the pelvis with thickened rim or rind. This fluid collection is not substantially different from the outside March 30 examination in size. There i s a much more thickened irregular rim or rind around this fluid collection. Although the fluid collection is homogeneous, abscess is favored. Patient has additional minimal free-fluid collections in the peritoneal cavity without a rim or rind present. The curvilinear tubular fluid collection in the upper mid abdomen anterior to the pancreas i s believed to be a bowel structure rather than an additional loculated fluid collection. Circumferential wall thickening involves multiple small bowel loops adjacent to this fluid collection . No extravasation of oral contrast which has reached the distal rectum.
--- NOTE | 2019-04-13 10:44 | RAD REPORT ---
EXAM DESCRIPTION: RAD - Chest Pa And Lat (2 Views) - 04/12/2019 10:15 pm CLINICAL HISTORY: 54 years Female fever COMPARISON: None TECHNIQUE: Two view study of the chest was performed. FINDINGS: Cardiac size is within normal limits. Central vessels are not increased. No infiltrates or effusions seen. No consolidation. No pneumothorax. IMPRESSION: No active disease. Electronically signed by: Louisa Barksdale MD 04/12/2019 9:20 PM CDT Due to temporary technical issues with the PACS/Fluency reporting system, reports are being signed by the in house radiologist as a courtesy to ensure prompt reporting. The interpreting radiologist is f ully responsible for the content of the report.
[2019-04-13] MEDS: Meropenem 500 MG in NA CHLORIDE 0.9% 100 ML IV SCH ×2 (11:13→16:45)
[2019-04-13] MEDS: D5 0.9 NS 1,000 ML IV SCH ×2 (11:14→22:34)
[2019-04-13] MEDS ORDERED: FLUMAZENIL 0.1 MG/ML (5 mL VIAL) IV ONE (12:13)
[2019-04-13] MEDS ORDERED: MIDAZOLAM HCL 2 MG/2 ML INJ ONE (12:14)
[2019-04-13] MEDS ORDERED: FENTANYL CITR 100 MCG/2 ML ONE ×2 (12:14→13:53)
--- NOTE | 2019-04-13 15:11 | RAD REPORT ---
EXAM DESCRIPTION: CT - Perc Abd Abcess Drainage - 04/13/2019 2:24 pm CLINICAL HISTORY: Pelvic fluid collection COMPARISON: CT study April 13, 2019, outside CT study March 30, 2019 TECHNIQUE: Patient presents for image guided drainage of a previously detailed large pelvic fluid co llection. Findings of act collection are detailed on the earlier report. The percutaneous CT-guided abscess drainage procedure, risks and alternatives were discussed with the patient in detail. After answering all questions, both oral and written consent were obtained. A irlanda e-out procedure was performed prior to any sedation or procedure. IV access and physiologic monitors were in place. A total of 3 milligrams Versed said and 200 micrograms fentanyl were administered to the patient prio r to and during the course of the procedure. Bottle signs were stable throughout the procedure. Preliminary imaging identified access site lower pelvis right of midline. Skin was prepped and draped in the usual sterile fashion. Following the initial medication via the IV, skin and deeper tissues w ere anesthetized with 1% lidocaine. A 19 gauge introducer needle was advanced into the pelvic fluid c ollection. Positioning was confirmed. A Chamorro guidewire was advanced into the fluid collection. Drai nage tract was then dilated using 8 Cuban, 10 Cuban and 12 Cuban dilators. A 12 Cuban percutaneou s drainage catheter was then advanced into the collection. CT imaging was used throughout the course of the examination to confirm positioning of needles and wires. Final imaging showed good placement o f the pigtail catheter within the pelvic fluid collection. A small sample of fluid was retained for c ultures. Birney drain bag was placed. Patient tolerated procedure well without complications. Vital signs were stable. Patient was transfer red back to the floor for continued care. Conscious sedation time was 1 hour. FINDINGS: CT-guided percutaneous drainage catheter was placed as detailed.
[2019-04-13] MEDS: VANCOMYCIN/NS 1 gm 1 GM/250 ML BAG IVPB SCH (15:28)
--- NOTE | 2019-04-13 16:05 | HP ---
Date of Admission: 04/12/2019 Chief Complaint: Abdominal pain. History Of Present Illness: This is a very pleasant 54-year-old female patient , who came to see me today for initial office visit, and the patient's initial office visit per request by her 's friend Dr. Cruz. The patient's brought her into office today, and as I have learned this information, she had a gastric sleeve surgery in 2010 and her weight prior to gastric sleeve surgery was 250 pounds. She lost approximately 100 pounds after the gastric sleeve surgery and her weight went down to around 140 pounds and remained stable in that range. She had lot of gastroesophageal reflux disease problem, so in 2017, her surgeon suggested to do gastric bypass surgery, which was done in 2016, and she lost weight down to 114 pounds or so after that surgery and was able to regain some weight and was maintaining weight around 124 pounds or so. Sometime middle of January of this year, she started to have abdominal pain and she had abdominal pain for almost a week, and she went to see her physicians. CT scan of the abdomen was done along with some other testing, and she was told to have internal abdominal hernia and had surgery done for that and during surgery along with the hernia, she was found to have what she describes as twisted bowel and possibly ischemic bowel or gangrenous bowel on basis of what she describes and she had exploratory laparotomy with partial resection of small bowel and end-to-end anastomosis. This surgery was done end of January this year. She stayed in hospital for about maybe 14 days or so. Postoperatively, she had low albumin level, third-spacing with a significant amount of fluid retention, and she required some diuretic medication. While she was in the hospital, she required TPN and a J-tube was placed. She was sent home probably middle of February 2019 with G-tube feeding, which she continued for about a week or so and then it was discontinued. The patient continued to have what she describes as lower abdominal pain, pain in her pelvis , and pain in the left upper thigh. The patient says that all this pain has not improved since her surgery, and she has been following up with her physicians, so on March 30, 2019, when she saw her physician, she had a CT scan of abdomen done, and she was told to have some fluid collection in her abdominal cavity, and it was drained percutaneously on an outpatient basis. The patient says that no cultures were collected. The patient still continues to have this pain, so she came to see me yesterday, and when I saw her at office , she was having fever 100.4 degrees Fahrenheit, oral temperature, and significant abdominal tenderness, and after examining and reviewing her CT scan from 03/30/2019, I recommended the patient to be admitted to the hospital, and they preferred to be admitted here at our hospital instead of going to [place]. I did communicate with our surgeon to see if he will be comfortable and available for any possible surgical intervention that might become necessary, and Dr. Muñoz is willing to provide consultation. All these details were discussed with family and patient was admitted to the hospital with my concern about intraabdominal infection with different possibility of either abscess or any fistula connection, etc., needs to be kept in mind. Allergy to morphine and Dilaudid, and she actually did not have allergic reaction, but said that during this last hospital admission in January 2019 when she was getting morphine, her pain got worse and then they changed to Dilaudid and when she was getting that her pain got worse also, and this are both IV medications. Medications: Gabapentin 300 mg 3 times a day, which was just started day prior to this admission, as she was seen by neurologist for ongoing abdominal pain and Neurology started her on this medication. She is also taking furosemide 20 mg daily and has about 6 tablets left. After that, she was told by her previous physician to discontinue it. She also takes Nexium 40 mg p.o. every other day. Family History: Significant for cancer of esophagus. Social History: Negative for smoking and alcohol use. Past Surgical History: Gastric sleeve surgery in 2010, gastric bypass surgery in 2016, , and January 2019 had surgery for intraabdominal hernia with ischemic bowel resulting in exploratory laparotomy and partial small-bowel resection. Past Medical History: Gastroesophageal reflux disease. Allergies: Morphine, Hydromorphone. Review of Systems: GI: As mentioned above. Constitutional: As mentioned above. All other systems reviewed and negative. Physical Examination: When she was first admitted: Vital Signs: Temperature 100.4, pulse 106, respiratory rate 16, blood pressure 125/68, oxygen saturation 98%. Height 5 feet 1 inch, weight 111 pounds. General: The patient appears weaker than normal, not in any respiratory distress. Awake, alert, oriented. HEENT: Head atraumatic, normocephalic. Conjunctivae nonerythematous. Sclerae white. Mouth, no thrush or edema noted. Ears/Nose, no mass, lesion, discharge noted. Neck: Supple. No JVD, lymph nodes, bruit, thyromegaly noted. Lungs: Bilateral good equal air entry. Clear to auscultation. No rhonchi. No rales. Heart: Normal heart sounds, no murmur or gallop. Abdomen: Large midline surgical scar with presence of 1 visible staple in the center part of the incision. There is no evidence of any gapping, discharge, bleeding. The patient has significant abdominal tenderness all over abdomen. No rebound tenderness. She has some guarding in the lower part of the abdomen in the central area. Bowel sounds normoactive. No hepatosplenomegaly. No bruit. Extremities: No leg edema. No calf tenderness. Skin: No rash, ulcer, cellulitis. Lymphatics: No lymph node enlargement in neck, supraclavicular, infraclavicular region. Neuro: No focal neurological deficit. Chest: Unremarkable. External Genitalia: Deferred. Rectal: Deferred. Laboratory Data: White count 18, hemoglobin 10.4, platelets 692. Sedimentation rate 115. INR 1.41. Sodium 136, potassium 3, chloride 97, bicarb 32, BUN 10, creatinine 0.62 glucose 118. Liver function tests unremarkable. Albumin 2.5, prealbumin 8.5, procalcitonin 0.42, lactic acid 1.8. Chest x-ray, no acute cardiopulmonary changes. Urinalysis; 1+ leukocyte esterase, bacteria less than 20, wbc's less than 5. Outside CT scan result from 03/30/2019 reviewed showing a collection of fluid in the pelvis. Impression: 1. Abdominal pain. 2. Fever. 3. Rule out intraabdominal abscess. 4. Rule out fistula. 5. Gastroesophageal reflux disease. 6. Anemia. 7. Malnutrition. 8. Hypokalemia. 9. Thrombocytosis, reactive. Plan: We will go ahead and admit the patient to hospital for further evaluation and management of this problem. The patient is appropriate for inpatient and is expected to spend 2 midnights in hospital. We will consult Dr. Muñoz from General Surgery. Blood culture was done. We will follow up on the results. Urine culture to be followed also. Empiric antibiotic vancomycin and meropenem will be started. We will go ahead and keep her n.p.o. IV fluid will be given. Pain medication was ordered for comfort care and SCD was ordered for DVT prophylaxis. We will get a CT scan of abdomen and pelvis done with contrast tomorrow and depending on that we will decide further plan of treatment and all such details were discussed with the patient and her . LES/SKYLA Voice ID: [id number] MTDD
--- NOTE | 2019-04-13 16:46 | EKG ---
Test Date: 2019-04-13 Test Time: 07:50:12 Clinical Services Specialist: NICHOLE MEASUREMENT RESULTS: Intervals: Rate: 90 VA: 128 QRSD: 88 QT: 378 QTc: 462 [place]: P: 17 VA: 128 QRS: 66 T: 28 INTERPRETIVE STATEMENTS: Normal sinus rhythm Nonspecific ST and T wave abnormality Prolonged QT Abnormal ECG Compared to ECG 02/06/2019 08:34:31 ST (T wave) deviation now present Prolonged QT interval now present Sinus bradycardia no longer present Electronically Signed On 04-13-19 16:43:01 CDT by Conrado Cruz
--- NOTE | 2019-04-13 17:26 | P.PN ---
Subjective Date of Service: 04/13/19 Chief Complaint: intrabdominal abscess Subjective: No new changes Review of Systems General: Weakness, Malaise ENT: Unremarkable Respiratory: Unremarkable Cardiovascular: Unremarkable Physical Examination - Vital Signs Temperature: 99.1 F Blood Pressure: 114/68 Pulse: 92 Respirations: 18 Pulse Ox (%): 96 - Physical Exam General: Alert, Oriented x3, Cooperative HEENT: PERRLA, EOMI Neck: Supple Gastrointestinal: No rebound, Tenderness (generalized mild) Neurological: Normal speech - Studies Laboratory Data (last 24 hrs) 04/13/19 18:00: Potassium Cancelled 04/13/19 05:54: Sodium 138, Potassium 3.1 L, BUN 8, Creatinine 0.41 L, Glucose 110 H, Magnesium 2.1 04/12/19 22:09: PT 16.4 H, INR 1.41 04/12/19 21:24: Sodium 136, Potassium 3.0 L, BUN 10, Creatinine 0.62, Glucose 118 H, Phosphorus 2.7, Magnesium 1.8, Total Bilirubin 0.2, AST 18, ALT 23, Alkaline Phosphatase 155 H 04/12/19 21:24: WBC 18.0 H, Hgb 10.4 L, Hct 32.5 L, Plt Count 692 H Assessment And Plan - Plan i discussed case with Dr velasquez. He did place a pigtail drainage with turnid yellow fluid cant r/o abscess. Pt feels better f/u cultures continue abx
[2019-04-13] MEDS: ACETAMINOPHEN 500 MG TAB PO PRN (20:48)
--- NOTE | 2019-04-13 22:53 | CON ---
Date of Consultation: 04/12/2019 Diagnoses: Abdominal pain, fever. History Of Present Illness: This is the case of a 54-year-old patient with an extensive surgical his tory. At 1st, she had a gastric stapling that was converted eventually into a gastric bypass, follow ed by an intraabdominal complication, infection and small bowel obstruction with internal hernia, req uired laparotomy and evacuation of infection. This happened in the last several months. Last review was done about a month ago. Last time, they did not culture the fluid, but she was doing better janelle arently, but then started to develop abdominal pain. Once again, came to one of the local doctors an d she was admitted. I do not have all the details of her surgery. We are trying to get as much info rmation we can trying to understand the sequence of events. Apparently, one of these surgeries, some ischemic bowel was found too. Past Medical History: Includes GE reflux. Past Surgical History: As above. Once again, gastric reflux in 2010, gastric bypass in 2016, intraa bdominal hernia and ischemic bowel in January 2019 with partial small bowel obstruction, then intraabdo becka abscess with percutaneous drainage and tube removal. Family History: Cancer of the esophagus. She does not smoke. She does not drink alcohol. Review of Systems: Ten points otherwise unremarkable. There is no dysuria, hematuria, hematochezia, or melena. Physical Examination: General: The patient is awake and alert. HEENT: Pupils are equal and reactive, anicteric. Neck: Supple. Chest: Clear. Abdomen: Soft and depressible. No guarding or rebound. Mild generalized tenderness, mainly in the lower abdomen. Pelvic/Rectal: Deferred. Extremities: Good capillary refill. Laboratory Data: Blood work showed WBC count of 18 with hemoglobin of 10.4. INR is 1.41. A sodium is 136, potassium 3.0, creatinine 0.6, alkaline phosphatase 155, prealbumin of 8.5. CAT scan of the abdomen and pelvis, still pending. We are going to try to get the previous report. The last surgery is important for us to see how much bowel she has left on her abdomen. When we did a CAT scan, we find a fluid collection, we will obta in cultures, fluid collection. I will explain to her the options of exploratory laparotomy, obviousl y after all the surgeries, she is trying to do conservative treatment that she can and we will try to help the best we can. She is already on antibiotics. We will follow the patient with you and give more recommendations as the case develops. GUS/SKYLA Voice ID: [id number] Report ID: [id number]
[2019-04-14] MEDS: Meropenem 500 MG in NA CHLORIDE 0.9% 100 ML IV SCH ×3 (00:54→17:01)
[2019-04-14] MEDS: VANCOMYCIN/NS 1 gm 1 GM/250 ML BAG IVPB SCH ×2 (00:54→12:58)
--- NOTE | 2019-04-14 01:02 | PN ---
Date of Progress Note: 04/13/2019 Subjective: The patient was seen this morning for followup. Her was present with her. No n ew complaints or problems reported by patient. Objective: Vital Signs: Reviewed. HEENT: Unremarkable. Lungs: Clear to auscultation. Heart: Sounds normal. Abdomen: Soft, bowel sounds normoactive. No hepatosplenomegaly. No bruit. Presence of guarding in the lower abdomen and diffuse tenderness all over abdomen, more so in lower abdomen than upper abdom en. No rebound tenderness. Laboratory Data: Sodium 138, potassium 3.1, chloride 102, bicarb 30, BUN 8, creatinine 0.41, glucose 110, magnesium 2.1. CAT scan of abdomen done today reveals a large area of fluid collection in the pelvis with extension into paracolic gutter. This is 1 large area of fluid collection. There is no evidence of any loculation. No evidence of any air within this fluid and this fluid collection has t hickened wall. The patient did bring her outside CAT scan of abdomen from 03/30/2019 and also CAT sc an from January 2019. All those CAT scan films reviewed with our radiologist this morning and we rox red those 2 CAT scans with current CAT scan. Impression: 1.Intra-abdominal/pelvic abscess. 2.Malnutrition. 3.Hypokalemia. Plan: I have reviewed her 2 prior CAT scans with our radiologist and details were discussed with rad iologist. Today's CAT scan also reviewed with radiologist. What the patient has is extensive area o f fluid collection with thickened wall and we are concerned about this representing intra-abdominal/p elvic abscess. This needs to be drained. The patient never had percutaneous drainage tube placed. What she had on March 30, 2019, was drainage with help of needle, but there was no placement of any roshni inage tube. I did talk to Dr. Muñoz and we discussed option of percutaneous drainage tube to be p laced by radiologist versus exploratory laparotomy and extensive to surgery for drainage of this absc ess, and he recommended percutaneous drainage tube to be placed by our interventional radiologist, Dr Lana Rios, and I did discuss details with Dr. Rios as well, and he was consulted and requested to assist with this procedure, and Dr. Rios successfully did perform this procedure today, and after the procedure, I did talk to him, and he reported that the patient has purulent thick fluid coming ou t of this drainage tube, and we will continue to monitor output through this drainage tube. Gram sta in and culture of this fluid were sent and we will continue empiric antibiotics that we are giving it to her right now. Potassium will be replaced per protocol. Starting tomorrow we will start the pat ient to ambulate as much as she can. SCDs in place for DVT prophylaxis. Details and plan of treatme nt discussed with the patient and her . LES/MODL Voice ID: [id number] Report ID: [id number]
[2019-04-14] MEDS: D5 0.9 NS 1,000 ML IV SCH (05:59)
[2019-04-14 06:30] LABS: Absolute Lymphocytes (CBC) 1.4 K/uL (0.7-4.9); Absolute Monocytes 0.9 K/uL (0.1-1.3); Basophils % 0.5 % (0-1.3); Eosinophils % 1.9 % (0-4.4); Hematocrit 29.1 % (36.0-45.0); Lymphocytes % 13.2 % (15.3-44.8); MPV 7.6 fL (7.6-11.3); Monocytes % 8.2 % (3.3-12.3); RBC Red Blood Cell Count 3.65 M/uL (3.86-4.86)
[2019-04-14 06:44] LABS: BUN Blood Urea Nitrogen 2 mg/dL (7-18); Bicarbonate 30 mmol/L (21-32); Glucose Level 101 mg/dL (74-106); Magnesium 1.8 mg/dL (1.8-2.4); Potassium 3.4 mmol/L (3.5-5.1); Sodium Level 144 mmol/L (136-145)
[2019-04-14] MEDS: PANTOPRAZOLE 40 MG INJ IVP SCH (08:54)
[2019-04-14] MEDS: GABAPENTIN 300 MG CAP PO SCH ×3 (08:54→20:11)
[2019-04-14] MEDS: ENSURE HIGH PROTEIN 237 ML CAN PO SCH ×3 (08:54→20:12)
[2019-04-14] MEDS ORDERED: MAGNESIUM SULFATE 1 gm IVPB 1 GM/100 ML BAG IV ONE (09:00)
[2019-04-14] MEDS ORDERED: POTASSIUM CL SA 10 MEQ TAB PO ONE ×2 (09:00→21:00)
--- NOTE | 2019-04-14 13:27 | PN ---
Date of Progress Note: 04/14/2019 Subjective: The patient was seen this morning for followup. Her was present with her at bed side. The patient feels better than before. She actually looks a lot better. Does not appear ill l ashwin the way she did when she first came into the hospital. She is ambulating well. She is toleratin g liquid diet well. She did have episode of nausea, vomiting this morning that she says it is nothin g new or unusual since her gastric bypass surgery every now and then. She states after she eats or d rinks something it would come right back up and that is what happened this morning. Objective: Vital signs: Reviewed. She remains afebrile. HEENT: Examination unremarkable. Lungs: Clear to auscultation. Heart: Sounds normal. Abdomen: Soft, bowel sounds normal. No guarding, rigidity. Bowel sounds normoactive. No distentio n. The patient has a percutaneous drainage tube in the lower anterior abdominal wall in the suprapub ic region with dressing intact. Tenderness is present in lower half of abdomen, but guarding and ten derness is somewhat better today compared to yesterday prior to the procedure. Extremities: No leg edema. Laboratory Data: Culture results pending. White count this morning is 10.5, hemoglobin 9.5, platele ts 567. Sodium 144, potassium 3.4, chloride 107, bicarb 30, BUN 2, creatinine 0.33, glucose 101, mag nesium 1.8. Impression: 1.Intra-abdominal/pelvic abscess. 2.Hypokalemia. 3.Anemia. 4.Malnutrition. 5.Thrombocytosis, reactive. Plan: We will go ahead and continue current IV antibiotics meropenem and vancomycin. Pharmacist is managing vancomycin dosing. The patient's blood count is normal today. Elevated platelet count is r eactive in nature and it is better today compared to day before yesterday. We will replace electroly simran per protocol. The patient has purulent fluid that is noted in the bag draining from the abscess cavity through the tube. Overnight she had 100 cc that was collected in the bag and we will continue to monitor output from that. Continue to follow with Dr. Muñoz and depending on the final report on the culture, we will decide more culture specific antibiotics. Ambulation was encouraged. Her n utritional status is very poor and I had encouraged her to try to improve her nutritional status with high-protein diet. Nutritional supplement like Ensure was ordered for her today and she was encoura ged to ambulate. SCDs in place for DVT prophylaxis. Details were discussed with the patient and her . LES/SKYLA Voice ID: [id number] Report ID: [id number]
[2019-04-14] MEDS: ACETAMINOPHEN 500 MG TAB PO PRN (17:03)
[2019-04-15] MEDS: Meropenem 500 MG in NA CHLORIDE 0.9% 100 ML IV SCH ×4 (00:13→23:58)
[2019-04-15] MEDS: ACETAMINOPHEN 500 MG TAB PO PRN ×4 (00:15→20:31)
[2019-04-15] MEDS: VANCOMYCIN/NS 1 gm 1 GM/250 ML BAG IVPB SCH ×2 (01:30→13:06)
[2019-04-15] MEDS: PANTOPRAZOLE 40MG TABLET PO SCH (05:29)
[2019-04-15 05:43] LABS: BUN Blood Urea Nitrogen 2 mg/dL (7-18); Bicarbonate 30 mmol/L (21-32); Glucose Level 98 mg/dL (74-106); Magnesium 1.9 mg/dL (1.8-2.4); Potassium 4.2 mmol/L (3.5-5.1); Sodium Level 142 mmol/L (136-145)
[2019-04-15] MEDS: GABAPENTIN 300 MG CAP PO SCH ×3 (08:25→20:31)
[2019-04-15] MEDS: ENSURE HIGH PROTEIN 237 ML CAN PO SCH (08:34)
[2019-04-15] MEDS: ENSURE CLEAR 200 ML CAN PO SCH ×2 (13:06→20:31)
--- NOTE | 2019-04-15 16:33 | PN ---
Date of Progress Note: 04/15/2019 Subjective: The patient was seen this morning for followup. No new complaints or problems reported by patient lying in bed, not in any distress. Abdominal pain in the lower abdomen remains unchanged. Reported some diarrhea, about 4 times loose stool yesterday. No vomiting. She is ambulating well. Objective: Vital signs: Reviewed. She remains afebrile. HEENT: Unremarkable. Lungs: Clear to auscultation. Heart: Sounds normal. Abdomen: Soft. Bowel sounds normal. No guarding, rigidity, distention. Presence of tenderness in lower abdomen remains unchanged, and percutaneous tube draining intraabdominal/pelvic abscess. Remai ns in place with intact dressing over it. Impression: 1.Intraabdominal/pelvic abscess. 2.Anemia. 3.Hypokalemia. Plan: We will go ahead and change the Ensure supplement that she takes to Ensure Clear and see if sh e tolerates that better and reduce chances of diarrhea. She does need to continue nutritional supple ment if at all possible to improve her mild nutrition problem. We will go ahead and continue current antibiotics. The wound culture has not grown any bacteria so far. Blood culture remains negative. We will get some blood count with her next blood draw, which will be midnight tonight. She will hav e vancomycin trough level and will get other additional blood testing done with that including some w orkup for anemia problem. Ambulation was encouraged, and the patient is having problem with IV acces s. She lost her IV access and will need IV access for a fairly long time, so I have written order fo r PICC line. She had a PICC line in the past and she understands the benefit and importance of such IV access. LES/MODL Voice ID: [id number] Report ID: [id number]
[2019-04-16 00:21] LABS: Absolute Lymphocytes (CBC) 1.6 K/uL (0.7-4.9); Absolute Monocytes 0.5 K/uL (0.1-1.3); Absolute Neutrophil 4.8 K/uL (1.8-8.0); Basophils % 1.9 % (0-1.3); Eosinophils % 4.2 % (0-4.4); Hematocrit 28.5 % (36.0-45.0); Lymphocytes % 21.5 % (15.3-44.8); Monocytes % 7.2 % (3.3-12.3); RBC Red Blood Cell Count 3.56 M/uL (3.86-4.86)
[2019-04-16 02:09] LABS: BUN Blood Urea Nitrogen 3 mg/dL (7-18); Bicarbonate 27 mmol/L (21-32); Ferritin 307.9 ng/mL (8-388); Folic Acid, (Folate) 11.8 ng/mL (3.1-17.5); Glucose Level 91 mg/dL (74-106); Magnesium 1.8 mg/dL (1.8-2.4); Potassium 3.3 mmol/L (3.5-5.1); Sodium Level 144 mmol/L (136-145); Transferrin 111 mg/dL (200-360)
[2019-04-16] MEDS: VANCOMYCIN/NS 1 gm 1 GM/250 ML BAG IVPB SCH (02:25)
[2019-04-16] MEDS: PANTOPRAZOLE 40MG TABLET PO SCH (04:42)
[2019-04-16] MEDS ORDERED: POTASSIUM CL SA 10 MEQ TAB PO ONE ×2 (05:00→17:36)
[2019-04-16] MEDS ORDERED: MAGNESIUM SULFATE 1 gm IVPB 1 GM/100 ML BAG IV ONE (05:00)
[2019-04-16] MEDS: Meropenem 500 MG in NA CHLORIDE 0.9% 100 ML IV SCH ×2 (09:19→16:16)
[2019-04-16] MEDS: ENSURE CLEAR 200 ML CAN PO SCH ×2 (09:19→13:50)
[2019-04-16] MEDS: GABAPENTIN 300 MG CAP PO SCH ×2 (09:19→13:51)
[2019-04-16] MEDS: VANCOMYCIN 1.25 GM in NA CHLORIDE 0.9% 250 ML IV SCH (13:50)
--- NOTE | 2019-04-16 14:29 | PN ---
Date of Progress Note: 04/16/2019 Subjective: The patient was seen this morning for followup. No new complaints or problems reported by the patient. Lying in bed, not in distress. Her was with her at bedside. The patient st ill has abdominal pain, but it is intermittent and reports that since the time of admission until tod ay, she has seen approximately 50% improvement in her abdominal pain. Intake and output records revi ewed. Vital signs reviewed. She is ambulating well. Still has some diarrhea, about 3 to 4 times a day, watery stool and yesterday we changed from Ensure high-protein to Ensure clear liquid and the pa ryan says that, that really has not changed her diarrhea. Last night, nurse tried to place PICC laury e and it was not successful, so the patient requested to try it again tonight. Objective: Vital signs: Reviewed. She is afebrile. HEENT: Unremarkable. Lungs: Clear to auscultation. Heart: Heart sounds normal. Abdomen: Soft. Bowel sounds normal. No guarding, rigidity. No distention. Presence of percutaneou s drainage tube in the lower anterior abdominal wall with dressing intact. No evidence of any bleedi ng around it. She has tenderness over lower abdomen, unchanged. Extremities: No leg edema. Laboratory Data: White count 7.3, hemoglobin 9, platelets 560. Sodium 144, potassium 3.3, chloride 110, bicarb 27, BUN 3, creatinine 0.33, glucose 91, ferritin 307.9. B12, folic acid and vitamin D lev el normal. Blood culture negative. Wound culture pending. Impression: 1.Intraabdominal/pelvis abscess. 2.Anemia, unspecified. 3.Hypokalemia. 4.Diarrhea. 5.Malnutrition. Plan: We will continue current IV antibiotics, follow up on wound culture. Depending on the results , we will decide about any culture specific antibiotics. Meanwhile, continue vancomycin and meropene m per order. Vancomycin trough level from last night reviewed. The patient was advised to continue to ambulate and tomorrow we will request social service to go ahead and start helping us making arran gements for home health care and home IV antibiotics. Choice of IV antibiotics and duration obviousl y will depend on the culture results as well as her response to therapy. We will continue to follow with Dr. Muñoz. Continue to replace electrolytes per protocol and we will give her 1 dose of Imodi um today to try to reduce the frequency and severity of diarrhea. Details and plan of treatment disc ussed with her. LES/SKYLA Voice ID: [id number] Report ID: [id number]
[2019-04-16] MEDS: ACETAMINOPHEN 500 MG TAB PO PRN (16:15)
[2019-04-17] MEDS: Meropenem 500 MG in NA CHLORIDE 0.9% 100 ML IV SCH ×3 (01:28→16:36)
[2019-04-17] MEDS: VANCOMYCIN 1.25 GM in NA CHLORIDE 0.9% 250 ML IV SCH ×2 (01:28→13:22)
[2019-04-17] MEDS: HYDROCODONE/APAP 5/325 MG TAB PO PRN (03:59)
[2019-04-17] MEDS: GABAPENTIN 300 MG CAP PO SCH ×4 (03:59→20:41)
[2019-04-17] MEDS: PANTOPRAZOLE 40MG TABLET PO SCH (06:13)
[2019-04-17] MEDS: ENSURE CLEAR 200 ML CAN PO SCH ×4 (06:13→20:41)
[2019-04-17 07:03] LABS: BUN Blood Urea Nitrogen 2 mg/dL (7-18); Bicarbonate 27 mmol/L (21-32); Glucose Level 87 mg/dL (74-106); Potassium 3.8 mmol/L (3.5-5.1); Sodium Level 143 mmol/L (136-145)
[2019-04-17] MEDS ORDERED: POTASSIUM CL SA 10 MEQ TAB PO ONE (09:00)
[2019-04-17] MEDS ORDERED: LOPERAMIDE HCL 2 MG CAPSULE PO ONE (09:00)
--- NOTE | 2019-04-17 10:00 | RAD REPORT ---
EXAM DESCRIPTION: RAD - Chest Single View - 04/17/2019 5:34 am CLINICAL HISTORY: PICC Placement COMPARISON: 04/12/2019 FINDINGS: Single frontal view of the chest. Tubes and lines: Left arm PICC with tip in the SVC near the atrial caval junction. Cardiomediastinal silhouette: Stable Lungs: No consolidation, pneumothorax, or pleural effusion. Low lung volumes. Bones: Stable. Upper abdomen: Postoperative change in the right upper abdomen. IMPRESSION: 1. Left arm PICC with tip in the SVC near the atriocaval junction. Electronically signed by: Pascual Mulligan 04/17/2019 5:43 AM CDT Due to temporary technical issues with the PACS/Fluency reporting system, reports are being signed by the in house radiologist as a courtesy to ensure prompt reporting. The interpreting radiologist is f ully responsible for the content of the report.
[2019-04-18] MEDS: Meropenem 500 MG in NA CHLORIDE 0.9% 100 ML IV SCH ×3 (00:07→17:00)
[2019-04-18] MEDS: ACETAMINOPHEN 500 MG TAB PO PRN (00:16)
--- NOTE | 2019-04-18 00:23 | PN ---
Date of Progress Note: 04/17/2019 Subjective: The patient was seen this morning for followup. She was lying in bed, not in any distre ss, sleeping, easily arousable. Denies any nausea or vomiting, but continues to have diarrhea. Objective: Vital Signs: Reviewed. HEENT: Unremarkable. Lungs: Clear to auscultation. Heart: Sounds normal. Abdomen: Soft. Bowel sounds normal. No guarding, rigidity, distention. Presence of tenderness in lower abdomen, unchanged. Presence of percutaneous drainage tube in the lower abdomen. Dressing int act and no evidence of any bleeding around it. Extremities: No leg edema. Laboratory Data: Sodium 143, potassium 3.8, chloride 110, bicarb 27, BUN 2, creatinine 0.36, glucose 87, magnesium 2. Impression: 1.Intra-abdominal/pelvic abscess. 2.Hypokalemia. 3.Malnutrition. 4.Anemia. Plan: We will go ahead and continue current antibiotics. Wound culture is pending. Blood culture n egative. The patient had at least 4 loose watery bowel movement yesterday. We will give 1 dose of I modium and see how she responds to that. She is drinking Ensure as suggested and I will see her pamela rrow for followup. I did talk to Dr. Muñoz regarding details about our treatment plan and our fide n is to possibly consider discharging her to go home sometime this week on Tuesday depending on her co ndition of course and day before her discharge. We will plan to repeat CAT scan to make sure that it is showing improvement as we are expecting. The patient will go home with minimum 2 weeks of IV ant ibiotics and maybe longer depending on how she is and that decision for any extension of IV antibioti cs will be made on outpatient basis. We are awaiting on final culture results, so that way we can de cide which particular antibiotic to send her home with. If culture does not grow any specific bacter ia, then we will send her home with current antibiotics, which is vancomycin and meropenem. I will s ee her tomorrow for followup. We will repeat blood work tomorrow. LES/MODL Voice ID: [id number] Report ID: [id number]
[2019-04-18] MEDS: VANCOMYCIN 1.25 GM in NA CHLORIDE 0.9% 250 ML IV SCH (01:52)
[2019-04-18 04:55] LABS: ALT/SGPT 36 U/L (12-78); AST/SGOT 35 U/L (15-37); Absolute Lymphocytes (CBC) 2.3 K/uL (0.7-4.9); Absolute Monocytes 0.9 K/uL (0.1-1.3); Absolute Neutrophil 6.8 K/uL (1.8-8.0); Alkaline Phosphatase 119 U/L (45-117); BUN Blood Urea Nitrogen 3 mg/dL (7-18); Bicarbonate 31 mmol/L (21-32); Bilirubin Total 0.1 mg/dL (0.2-1.0); Eosinophils % 3.2 % (0-4.4); Glucose Level 88 mg/dL (74-106); Hematocrit 31.6 % (36.0-45.0); MPV 7.6 fL (7.6-11.3); Monocytes % 8.7 % (3.3-12.3); Potassium 3.6 mmol/L (3.5-5.1); Prealbumin 11.4 mg/dL (20-40); Protein, Total 7.2 g/dL (6.4-8.2); RBC Red Blood Cell Count 3.97 M/uL (3.86-4.86); Sodium Level 144 mmol/L (136-145)
[2019-04-18] MEDS: PANTOPRAZOLE 40MG TABLET PO SCH (06:00)
[2019-04-18] MEDS: GABAPENTIN 300 MG CAP PO SCH ×3 (08:59→21:31)
[2019-04-18] MEDS: ENSURE CLEAR 200 ML CAN PO SCH ×3 (09:00→21:32)
[2019-04-18] MEDS ORDERED: POTASSIUM CL SA 10 MEQ TAB PO ONE (09:00)
[2019-04-18] MEDS: VANCOMYCIN 1.5 GM in NA CHLORIDE 0.9% 500 ML IVPB SCH ×2 (11:05→21:31)
[2019-04-18] MEDS ORDERED: VANCOMYCIN 1.5 GM in NA CHLORIDE 0.9% 500 ML IVPB SCH (13:00)
[2019-04-18 22:56] VITALS: O2SAT 96
[2019-04-19] MEDS: Meropenem 500 MG in NA CHLORIDE 0.9% 100 ML IV SCH ×3 (00:34→17:35)
[2019-04-19] MEDS: HYDROCODONE/APAP 5/325 MG TAB PO PRN (01:58)
[2019-04-19 05:02] LABS: BUN Blood Urea Nitrogen 5 mg/dL (7-18); Bicarbonate 30 mmol/L (21-32); Glucose Level 77 mg/dL (74-106); Phosphorus 3.7 mg/dL (2.5-4.9); Potassium 3.6 mmol/L (3.5-5.1); Sodium Level 143 mmol/L (136-145)
[2019-04-19] MEDS: PANTOPRAZOLE 40MG TABLET PO SCH (06:04)
[2019-04-19] MEDS ORDERED: POTASSIUM CL SA 10 MEQ TAB PO ONE (09:00)
[2019-04-19] MEDS: ENSURE CLEAR 200 ML CAN PO SCH ×3 (09:00→21:00)
[2019-04-19] MEDS: GABAPENTIN 300 MG CAP PO SCH ×3 (10:48→21:32)
[2019-04-19] MEDS: VANCOMYCIN 1.5 GM in NA CHLORIDE 0.9% 500 ML IVPB SCH ×2 (12:11→21:32)
[2019-04-19 14:27] LABS: BUN Blood Urea Nitrogen 5 mg/dL (7-18); Bicarbonate 31 mmol/L (21-32); Glucose Level 104 mg/dL (74-106); Potassium 3.3 mmol/L (3.5-5.1); Sodium Level 144 mmol/L (136-145)
[2019-04-19] MEDS: KCL 20 MEQ/100 mL IVPB 20 MEQ/100 ML BAG IV SCH ×2 (14:59→16:56)
--- NOTE | 2019-04-19 18:48 | RAD REPORT ---
EXAM DESCRIPTION: CT - Abdomen Pelvis Wo Contrast - 04/19/2019 11:45 am CLINICAL HISTORY: Abdominal pain. intra-abd/pelvic abscess COMPARISON: Perc Abd Abcess Drainage dated 04/13/2019; Abdomen Pelvis W Contrast dated 04/13/2019 TECHNIQUE: CT imaging of the abdomen and pelvis was performed without contrast. Solid organ and vasc ular assessment is limited due to lack of IV contrast. All CT scans are performed using dose optimization technique as appropriate and may include automated exposure control or mA/KV adjustment according to patient size. FINDINGS: The lower lung her are clear.Postsurgical changes are present about the stomach with a hiatal hernia noted. The liver demonstrates a small cyst in the left lobe. No aggressive liver lesion or biliary dilatatio n. Cholecystectomy clips present.The spleen, pancreas, adrenal glands and kidneys are within normal l imits. Pigtail drain is in place within the patient's known pelvic abscess. There has been significant reduc tion in size of the abscess, however significant fluid is still present within the abscess cavity. A bowel obstruction is not present. No pneumoperitoneum. The osseous structures are within normal limits. IMPRESSION: Percutaneous drain is in place within the pelvic floor abscess. Although there has been significant reduction in the size of the abscess, there remains a moderate amount of fluid within the abscess cavity still present. A limited non-contrast examination was performed as detailed.
--- NOTE | 2019-04-19 20:08 | CON ---
Date of Consultation: 04/19/2019 Reason For Consultation: Short run of ventricular tachycardia. History Of Present Illness: Ms. Euceda is 54, was admitted on the [address] Gr because of abdominal pain and fever, elevated white count, was found to have an intraabdominal abscess that had been drained and still draining since. Dr. Muñoz was involved in her care. She has been on a ntibiotics and has improved dramatically since admission. No previous cardiac history. No previous cardiac risk factors. However, today had a short run of ventricular tachycardia without any hemodyna bela compromise. I noticed that her last magnesium was 2 and her present potassium was 3.3. The dom ent has had issues of very poor appetite prior to this admission. No cardiac symptoms reported. Her past medical history is unremarkable other than her gastric issues. Allergies: NONE. Review of Systems: Negative. Social History: Negative. Family History: Negative. Medications: No cardiac medications at home. Physical Examination: Vital Signs: Stable, afebrile. HEENT: Negative. Neck: Supple. No bruit, lymphadenopathy, JVD, or thyromegaly. Chest: Clear. Abdomen: Benign. Extremities: Revealed no clubbing, cyanosis, or edema. Diagnostic Data: Within normal limit now except for the potassium. Impression And Plan: Ventricular tachycardia, probably secondary to low potassium. I would like to get an echocardiogram, make sure we are not missing any cardiomyopathy because of her previous infect ions. I would supplement potassium. I would repeat the magnesium. No other cardiac workup otherwis e at this point. I will discuss the case further with Dr. Gr. EB/SKYLA Voice ID: [id number] Report ID: [id number]
[2019-04-20] MEDS: Meropenem 500 MG in NA CHLORIDE 0.9% 100 ML IV SCH ×3 (00:58→16:08)
--- NOTE | 2019-04-20 02:30 | PN ---
Date of Progress Note: 04/18/2019 Subjective: The patient was seen this morning for followup. No new complaints or problems reported. She is lying in bed, not in distress. Has diarrhea about 3 to 4 times a day, loose watery stool, u nchanged. No vomiting. Objective: Vital Signs: Reviewed. HEENT: Unremarkable. Lungs: Clear to auscultation. Heart: Sounds normal. Abdomen: Soft. Bowel sounds normal. No guarding, rigidity, tenderness, distention except lower abd ominal tenderness, but overall better than before. Percutaneous drain present in lower anterior abdo becka wall. Extremities: No leg edema. Laboratory Data: White count 10.4, hemoglobin 10.2, platelets 628. Sodium 144, potassium 3.6, chlor osiel 108, bicarb 31, BUN 3, creatinine 0.31, glucose 88. Impression: 1.Intra-abdominal/pelvic abscess. 2.Hypokalemia. 3.Anemia. 4.Malnutrition. Plan: Continue current medications, IV antibiotic. I did communicate with pharmacist and requested timing of vancomycin to be changed which will be easily manageable for patient and family to continue at home. We will continue current antibiotics, which are meropenem and vancomycin as the patient's wound culture has not grown any bacteria, so these 2 empiric antibiotics will be continued for 2 to 4 weeks after discharge. Details were discussed with Dr. Muñoz last night, and he will see the pat iemariya for followup at his clinic. He wants the patient to go home with this drainage tube, and at off ice, he will decide at what point to remove. Social Service consultation was requested for them to h elp arrange IV antibiotics at home, and I will see her tomorrow for followup. We will repeat CAT sca n of abdomen tomorrow. Malnutrition problem has improved with improvement in prealbumin level. LES/MODL Voice ID: [id number] Report ID: [id number]
--- NOTE | 2019-04-20 03:45 | PN ---
Date of Progress Note: 04/19/2019 Subjective: The patient was seen this morning for followup. Her was with her at bedside. Objective: Vital Signs: Reviewed. HEENT: Unremarkable. Lungs: Clear to auscultation. No rhonchi or rales. Heart: Sounds normal. Abdomen: Soft. Bowel sounds normoactive. No guarding, rigidity, or distention. Presence of tender ness in lower abdomen, but significantly better than before. Extremities: No leg edema. Laboratory Data: CAT scan of abdomen and pelvis done today shows a percutaneous drain in place withi n pelvic abscess. There has been significant reduction in size of the abscess. There remains a mode rate amount of fluid within the abscess cavity, still present. Labs; sodium 143, potassium 3.6, chlo ride 107, bicarb 30, BUN 5, creatinine 0.39, glucose 77. Impression: 1.Intra-abdominal/pelvic abscess. 2.Anemia. 3.Hypokalemia. 4.Ventricular tachycardia. Plan: During the course of the day today, the patient had 7-beat run of ventricular tachycardia. Sh e was asymptomatic, hemodynamically stable. Dr. Cruz from Cardiology was consulted. He has order ed echocardiogram. We will follow up on it. Potassium was low this afternoon when she had another b lood work done after the ventricular tachycardia episode, so we will replace potassium per protocol. I will see her tomorrow for followup. Social Service is trying to help make arrangements for home IV antibiotics. Possible discharge to go home tomorrow. I did discuss de tails with Dr. Cruz. LES/MODL Voice ID: [id number] Report ID: [id number]
[2019-04-20] MEDS ORDERED: POTASSIUM 25 MEQ EFFERV TAB PO ONE (05:00)
[2019-04-20] MEDS: PANTOPRAZOLE 40MG TABLET PO SCH (05:38)
[2019-04-20 05:42] VITALS: BMI 21.4
[2019-04-20 06:36] LABS: BUN Blood Urea Nitrogen 4 mg/dL (7-18); Bicarbonate 29 mmol/L (21-32); Glucose Level 91 mg/dL (74-106); Potassium 3.9 mmol/L (3.5-5.1); Sodium Level 141 mmol/L (136-145)
[2019-04-20 06:39] LABS: Absolute Lymphocytes (CBC) 2.1 K/uL (0.7-4.9); Absolute Monocytes 0.8 K/uL (0.1-1.3); Absolute Neutrophil 5.4 K/uL (1.8-8.0); Eosinophils % 3.9 % (0-4.4); Hematocrit 28.8 % (36.0-45.0); Lymphocytes % 24.4 % (15.3-44.8); MPV 7.4 fL (7.6-11.3); Monocytes % 8.7 % (3.3-12.3); RBC Red Blood Cell Count 3.65 M/uL (3.86-4.86)
[2019-04-20] MEDS: VANCOMYCIN 1.5 GM in NA CHLORIDE 0.9% 500 ML IVPB SCH (08:53)
[2019-04-20] MEDS: GABAPENTIN 300 MG CAP PO SCH ×2 (08:54→14:02)
[2019-04-20] MEDS: ENSURE CLEAR 200 ML CAN PO SCH ×2 (08:54→14:00)
--- NOTE | 2019-04-20 09:01 | ECHO ---
HEIGHT: 5 ft 1 in WEIGHT: 113 lb 6.4 oz DATE OF STUDY: 04/19/[address]: Conrado Cruz MD 2-DIMENSIONAL: YES M.MODE: YES DOPPLER: YES COLOR FLOW: YES TDS: PORTABLE: DEFINITY: BUBBLE STUDY: DIAGNOSIS: VTACH CARDIAC HISTORY: CATHERIZATION: NO SURGERY: NO PROSTHETIC VALVE: NO PACEMAKER: NO MEASUREMENTS (cm) DIASTOLIC (NORMALS) SYSTOLIC (NORMALS) IVSd 1.2 (0.6-1.2) LA Diam 3.1 (1.9-4.0) LVEF 54% LVIDd 4.0 (3.5-5.7) LVIDs 2.9 (2.0-3.5) %FS 28% LVPWd 1.0 (0.6-1.2) Ao Diam 2.6 (2.0-3.7) 2 DIMENSIONAL ASSESSMENT: RIGHT ATRIUM: NORMAL LEFT ATRIUM: NORMAL RIGHT VENTRICLE: NORMAL LEFT VENTRICLE: SIGMOID SEPTUM TRICUSPID VALVE: NORMAL MITRAL VALVE: NORMAL PULMONIC VALVE: NORMAL AORTIC VALVE: NORMAL PERICARDIAL EFFUSION: NONE AORTIC ROOT: NORMAL LEFT VENTRICULAR WALL MOTION: NORMAL DOPPLER/COLOR FLOW: MILD TRICUSPID REGURGITATION. NORMAL RIGHT VENTRICULAR SYSTOLIC PRESSURE. COMMENTS: NORMAL LEFT VENTRICULAR EJECTION FRACTION. MILD TRICUSPID REUGURGITATION. SIGMOID SEPTUM. OTHERWISE NORMAL TWO DIMENSIONAL ECHOCARDIOGRAM WITH DOPPLER. TECHNOLOGIST: CIARAN MCPHERSON
[2019-04-20 17:01] VITALS: BP 137/81; TEMP 98.9
--- NOTE | 2019-04-21 01:28 | DS ---
Date of Discharge: 04/20/2019 Disposition: Discharged to go home. Physical Examination: HEENT: Unremarkable. Lungs: Clear to auscultation. Heart: Sounds normal. Abdomen: Soft. Bowel sounds normal. No guarding, rigidity, distention. Presence of percutaneous d rainage tube in the right lower abdominal wall in the suprapubic region and overlying dressing intact and clean dressing. The patient has mild tenderness in lower abdomen, but no guarding. Overall, th is is much better than before. Extremities: No leg edema. Hospital Course: This is a 54-year-old female patient, who was admitted to the hospital after she ca me into my office with a very complicated history. Please see dictated H and P for more information. 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 After I saw her, de cision was made to admit her to the hospital as I was concerned about intra-abdominal infection. Fur ther evaluation revealed elevated white count around 18,000, some anemia problem, and hypokalemia. S he was placed on electrolyte replacement protocol and electrolytes were replaced. Empiric antibiotic vancomycin and meropenem were started. Pharmacy was consulted to help manage antibiotic doses. CAT scan of the abdomen revealed area of large mass. There were no loculations. This fluid collection had a very thick wall and we were concerned about abscess in view of elevated white count, fever, and ongoing abdominal pain. Dr. Muñoz from General Surgery was consulted. After CAT scan was done, we did talk to our interventional radiologist, Dr. Rios and we considered this to be abscess with the clinical scenario, so we discussed 2 different options, 1 is to do exploratory laparotomy and dra wall of this abscess versus more conservative approach of percutaneous drainage. She never had perc utaneous drainage done before, so our first recommendation was to go ahead and provide percutaneous d rainage for this fluid collection and along with that and IV antibiotics, we hope that we can resolve this issue. If this treatment plan fails, then she may require exploratory laparotomy. All these d etails were discussed with the patient's and the patient and they were agreeable for treatmen t plan. Dr. Rios was consulted and he did place the percutaneous drainage tube and we started to obtain a purulent material from that, which was sent for Gram stain and culture and culture came back negative. So, we continued empiric antibiotic, which is vancomycin and meropenem. She has tolerate d antibiotic very well. White count came down to normal. Renal function has remained normal. PICC line was placed and yesterday, the patient had 7-beat run of ventricular tachycardia. Her stat blood work showed low potassium, which was corrected. The patient also has low albumin and pre-albumin le kamran indicating significant problem with mild nutrition and we started her on nutritional supplement u sing Ensure high-protein and she had diarrhea with that, so we changed it to Ensure Clear and she is doing her best to get 2-3 cans a day, but she still has diarrhea with this formula, but she is managi ng it along with her diet. Her pre-albumin level was repeated and it did come back up. Overall, wit hin about 48 hours or so after admission, she started feeling much better and she started looking muc h better. She started to ambulate well. DVT prophylaxis was given using SCD. We did not want to us e Lovenox because of risk of bleeding complication. Yesterday, base ply hand, Dr. Cruz, was consul ziyad for this nonsustained ventricular tachycardia problem. I did discuss details with him and this w as thought to be due to low potassium as her potassium level was low in the afternoon when she had th is ventricular tachycardia problem. Potassium was corrected. She has bowel movement about 3-4 times a day. It is liquidy loose bowel movement and she does respond well to Imodium, so she will continu e 1 Imodium tablet daily at home and if she needs 2, then she will consider taking second dose for e day, but otherwise 1 dose should work well as we did try that in the hospital and it did provide he r benefit. Her diarrhea is likely due to nutritional supplement like Ensure and possibly antibiotics as well. Social Service was consulted. Diarrhea started immediately after we started giving her En sure. Social Service helped make arrangements for patient to get IV antibiotics at home. Yesterday, repeat CAT scan of abdomen was done and it has shown a moderate reduction and fluid collection. Ech ocardiogram done showing normal ejection fracture. Overall, the patient's condition is stable for di buster. We will continue to follow up on outpatient basis along with Dr. Muñoz's. Final Diagnoses: 1.Intra-abdominal/pelvic abscess. 2.Anemia. 3.Thrombocytosis. 4.Gastroesophageal reflux disease. 5.Hypokalemia. 6.Paroxysmal ventricular tachycardia. Discharge Medications And Instructions: 1.Continue Nexium and continue gabapentin as she was taking before this admission. 2.Take Imodium [id number]-ovt-blsiyax 2 mg 1 tablet by mouth p.o. daily for diarrhea. 3.Align 1 tablet p.o. daily. 4.Klor-Con 10 mEq p.o. daily. Prescription given for 30 tablets. 5.Tylenol with Codeine No. 3, 1 tablet by mouth 3 times a day as needed for pain. 6.Ensure 1 can by mouth 3 times a day. Followup: 1.Follow up with Dr. Muñoz next week. 2.Follow up with my office in a week after next. 3.IV antibiotics to be given at home includes vancomycin 1.5 g every 12 hours and meropenem 500 mg e very 8 hours, both to be given for 3 weeks. 4.Home health nurse to flush PICC line per protocol, change PICC line dressing per protocol, and I w ill notice her home health nurse on outpatient basis regarding when to remove PICC line. The patient to follow up with Dr. Muñoz next week and follow up at my office a week after next. 5.The patient to monitor output from the drainage tube, keep a record of it, and take those records at the time of followup visit with Dr. Muñoz and my office. 6.Follow up with Dr. Cruz in 2-3 weeks. LES/SKYLA Voice ID: [id number] Report ID: [id number]
== END 2019-04-20 17:15 | disposition home health service (06) | DRG 372 ==
LOC: 4TH 20:31
PROVIDERS: ADMIT Internal Medicine; ATTEND Internal Medicine
PROC: 0W9J30Z Drainage of Pelvic Cavity with Drainage Device, Percutaneous Approach (ICD-10-PCS; principal; 2019-04-13)
PROC: 02HV33Z Insertion of Infusion Device into Superior Vena Cava, Percutaneous Approach (ICD-10-PCS; 2019-04-17)
DX: K65.1 Peritoneal abscess (principal); E46 Unspecified protein-calorie malnutrition; I47.2 Ventricular tachycardia; K21.9 Gastro-esophageal reflux disease without esophagitis; D64.9 Anemia, unspecified; Z68.21 Body mass index [BMI] 21.0-21.9, adult; E87.6 Hypokalemia; D47.3 Essential (hemorrhagic) thrombocythemia; R19.7 Diarrhea, unspecified; Z98.84 Bariatric surgery status; Z90.3 Acquired absence of stomach [part of]; Z90.49 Acquired absence of other specified parts of digestive tract
CPT/HCPCS: 36415; 49021; 71045; 71046; 74176; 74177; 80048; 80053; 80202; 81001; 82306; 82607; 82728; 82746; 83540; 83605; 83735; 84100; 84132; 84134; 84145; 84443; 84466; 85025; 85610; 85652; 87040; 87070; 87075; 87086; 87088; 87205; 93005; 93306; C9113; J2185; J2250; J2405; J3010; J3370; J3475; Q9967